=== PATIENT | female | born 1990 | race African-American/Black ===

== ENCOUNTER 2020-09-11 16:23 | Emergency (ER) | payer MEDICAID, OTHER ==
[~2020-09-11] VITALS: Ht 165.1 cm; Wt 48.0 kg
[2020-09-11] MEDS ORDERED: MORPHINE SULFATE 4 MG/ML CPJ (NOT FOR IM USE) IV STA (17:05)
[2020-09-11] MEDS ORDERED: ONDANSETRON HCL 4MG/2ML INJ IV STA (17:05)
[2020-09-11] MEDS ORDERED: BACITRACIN ZINC OINT UDPKT TOP ONE (17:15)
[2020-09-11] MEDS ORDERED: LIDOCAINE HCL/PF 1% 10 MG/ML 5ML VIAL IJ ONE (17:15)
[2020-09-11] MEDS ORDERED: CEFAZOLIN 1000MG PREMIX 50 ML IV ONE (17:15)
[2020-09-11] MEDS ORDERED: TETANUS, DIPHTHERIA, PERTUSSIS VAC/PF 0.5ML (>7YR OLD) IM ONE (17:15)
[2020-09-11] MEDS ORDERED: SODIUM CHLORIDE 0.9% 1,000 ML IV ONE (17:15)
[2020-09-11] MEDS ORDERED: TETRACAINE 0.5% OPHTH DROPS 4ML BOTHEYE ONE (18:00)
[2020-09-11] MEDS ORDERED: FLUORESCEIN SODIUM 1MG/STRIP BOTHEYE ONE (18:00)
[2020-09-11 18:41] LABS: BASOPHILS % 0.1 % (0.0-2.0); EOSINOPHILS % 0.1 % (0.0-5.0); HEMATOCRIT. 35.9 % (36.0-48.0); HEMOGLOBIN. 12.2 g/dL (12.0-16.0); LYMPHOCYTES % 7.3 % (20.0-50.0); MEAN CORPUSCULAR HEMOGLOBIN 32.9 pg (28.0-32.0); MEAN PLATELET VOLUME 7.9 fl (7.4-10.4); MONOCYTES % 5.2 % (2.0-8.0); NEUTROPHILS % 87.3 % (40.0-76.0); PLATELET 206 x1000/uL (130-400); RED CELL DISTRIBUTION WIDTH 13.7 % (11.6-14.6)
[2020-09-11 18:53] LABS: CHLORIDE 109 mEq/L (98-107)
[2020-09-11 19:00] LABS: INR 1.2; PARTIAL THROMBOPLASTIN TIME 26.6 sec (23.4-31.0); PROTHROMBIN TIME 12.1 sec (9.6-11.0)
[2020-09-11 19:05] LABS: HCG SCREEN NEGATIVE
[2020-09-11 19:33] VITALS: BP 106/59
== END 2020-09-11 19:30 | disposition short-term general hospital (02) ==
LOC: ER 16:23
DX: S02.92XA Unspecified fracture of facial bones, initial encounter for closed fracture (principal); I49.9 Cardiac arrhythmia, unspecified; Y04.0XXA Assault by unarmed brawl or fight, initial encounter; Y93.89 Activity, other specified; Y92.89 Other specified places as the place of occurrence of the external cause; Y99.8 Other external cause status
CPT/HCPCS: 36415; 70450; 70486; 71045; 73030; 73060; 73080; 73090; 73110; 73120; 73620; 80053; 84703; 85025; 85610; 85730; 86850; 86900; 86901; 90471; 90715; 93005; 96361; 96365; 96375; 99285; J0690; J2270; J2405; J3490; J7030